=== PATIENT | male | born 1990 | race Caucasian/White ===

== ENCOUNTER 2020-12-23 11:10 | Emergency (ER) | payer OTHER ==
[~2020-12-23] VITALS: Ht 180.3 cm; Wt 87.3 kg
[2020-12-23 11:20] VITALS: TEMP 97.5
[2020-12-23] MEDS ORDERED: NORVASC2.5 MG PO (11:43)
[2020-12-23 11:55] LABS: COLLECTION METHOD CLEAN CATCH
[2020-12-23 12:04] LABS: PH 7 (5-8); SQUAMOUS EPITHELIAL None Seen /hpf; URINE APPEARANCE Clear; URINE BACTERIA None Seen /hpf; URINE BILIRUBIN Negative (NEGATIVE); URINE BLOOD Negative (NEGATIVE); URINE COLOR Straw; URINE GLUCOSE Negative (NEGATIVE); URINE KETONE Negative (NEGATIVE); URINE LEUKOCYTE ESTERASE Negative (NEGATIVE); URINE NITRATE Negative (NEGATIVE); URINE PROTEIN(semi-quant) Negative (NEGATIVE); URINE RBC 0-2 /hpf; URINE UROBILINOGEN Negative (NEGATIVE)
[2020-12-23 13:19] VITALS: BP 163/109; PULSE 54
== END 2020-12-23 13:20 | disposition home or self-care (01) ==
LOC: COL.ER 11:10
PROVIDERS: Physician Assistant
DX: N45.1 Epididymitis (principal)